=== PATIENT | female | born 1995 | race Caucasian/White ===

== ENCOUNTER 2016-04-11 00:01 | Emergency (ER) | payer OTHER ==
[2016-04-11] MEDS ORDERED: ONDANSETRON DISINTEGRATING 4 MG TAB PO ONE (00:27)
--- NOTE | 2016-04-11 00:28 | EDPHY ---
H & P Stated Complaint: vomiting, bloody Time Seen by Provider: 04/11/16 00:20 HPI/ROS: Chief complaint: Vomiting blood HPI: This is a 20-year-old college student who was out drinking this evening. Patient does not know how much she had to drink the state it was "all lot". She then developed some nausea and vomiting. Initially the emesis was yellowish. She vomited multiple times. Stated that the last couple of times she noticed that there was some blood in her emesis. She thinks she vomited blood maybe twice. Last was about 30 minutes ago. Has not had any pain. No abdominal pain. No chest pain. No shortness of breath. Is currently without complaint. ROS: 10 point Review of Systems is negative except as noted in the HPI. Past medical history: Acne vulgaris Medications: An acne medication she does not recall Allergies: Penicillin Social history: She does not smoke, she does drink alcohol, denies any other recreational drug use. Physical exam: Gen: Awake, Alert, No Distress, smiling, laughing, smells of alcohol HEENT: Nose: no rhinorrhea Eyes: PERRLA, EOMI Mouth: Moist mucosa Neck: Supple, no JVD Chest: nontender, lungs clear to auscultation Heart: S1, S2 normal, no murmur Abd: Soft, non-tender, no guarding Back: no CVA tenderness, no midline tenderness Ext: no edema, non-tender Skin: no rash Neuro: CN II-XII intact, Sensation grossly intact, Strength 5/5 in bilateral upper and lower extremities - Personal History LMP (Females 10-55): IUD In Place - Medical/Surgical History Hx Asthma: No Hx Chronic Respiratory Disease: No Hx Diabetes: No Hx Cardiac Disease: No Hx Renal Disease: No Hx Cirrhosis: No Hx Alcoholism: No Hx HIV/AIDS: No Hx Splenectomy or Spleen Trauma: No Other PMH: asthma - Social History Smoking Status: Never smoked Constitutional: Initial Vital Signs Temperature (C) 36.9 C 04/11/16 00:05 Heart Rate 89 04/11/16 00:05 Respiratory Rate 20 04/11/16 00:05 Blood Pressure 113/62 04/11/16 00:05 O2 Sat (%) 98 04/11/16 00:05 O2 Delivery Mode Room Air Allergies/Adverse Reactions: Penicillins Allergy (Verified 04/11/16 00:05) Medical Decision Making ED Course/Re-evaluation: 20-year-old girl who is been drinking heavily this evening with vomiting and likely Britney-Graham tear. Will observe for any further vomiting. Will give her oral ondansetron. She is hemodynamically normal. Has no pain. Has a normal exam and is without complaint. Departure - Departure Disposition: Home, Routine, Self-Care Clinical Impression: Alcohol intoxication, Britney-Graham tear Condition: Good Instructions: Alcohol Intoxication (ED), Britney-Graham Syndrome (ED) Additional Instructions: Please try to avoid binge drinking alcohol. Follow up at [facility] for any concerns. Referrals: NONE *PRIMARY CARE P,. [Primary Care Provider] - As per Instructions [facility] [Outside] - As per Instructions
[2016-04-11 01:40] VITALS: BP 111/75; PULSE 75; RESP 16; TEMP 97.9; O2SAT 95
== END 2016-04-11 01:40 | disposition home or self-care (01) ==
DX: K22.6 Gastro-esophageal laceration-hemorrhage syndrome (principal); F10.129 Alcohol abuse with intoxication, unspecified; J45.909 Unspecified asthma, uncomplicated

== ENCOUNTER 2016-09-16 21:35 | Emergency (ER) | payer OTHER ==
[2016-09-16] MEDS ORDERED: IBUPROFEN 600 MG TAB PO ONE (22:14)
[2016-09-16] MEDS ORDERED: ACETAMINOPHEN 500 MG TAB PO ONE (22:14)
[2016-09-16] MEDS ORDERED: NS 1,000 ML IV ONE ×2 (22:45→23:57)
--- NOTE | 2016-09-16 22:47 | EDPHY ---
H & P Stated Complaint: migraine headache 3 days Time Seen by Provider: 09/16/16 22:28 HPI/ROS: CHIEF COMPLAINT: Chills fever nausea fatigue HISTORY OF PRESENT ILLNESS: This is a 21-year-old female presenting to the emergency department complaining of several days of fever chills nausea fatigue. Patient states night chills started with eye swelling was not feeling that great, Thursday took some Advil was somewhat feeling better, feeling better on Thursday, Thursday chills started again and Thursday started feeling worse with fever. Seen at [facility] on 09/15/2016 diagnosed with sinus infection placed on doxycycline has had several doses no vomiting but nauseous. Patient states this afternoon evening symptoms worsen just feeling more fatigued body aches some facial swelling. Denies any chest pain shortness of breath REVIEW OF SYSTEMS: Constitutional: Fever chills decreased p.o. intake Eyes: No discharge. No blurred vision. Eye swelling ENT: No sore throat. Cardiovascular: No chest pain, no palpitations. Respiratory: No cough, no shortness of breath. Gastrointestinal: RUQ abdominal pain, nausea. no vomiting. No diarrhea Genitourinary: No hematuria. Musculoskeletal: No back pain. Body aches Skin: No rashes. Neurological: No headache. Source: Patient - Personal History LMP (Females 10-55): 15-21 Days Ago Current Tetanus/Diphtheria Vaccine: Yes Current Tetanus Diphtheria and Acellular Pertussis (TDAP): Yes - Medical/Surgical History Hx Asthma: Yes Hx Chronic Respiratory Disease: No Hx Diabetes: No Hx Cardiac Disease: No Hx Renal Disease: No Hx Cirrhosis: No Hx Alcoholism: No Hx HIV/AIDS: No Hx Splenectomy or Spleen Trauma: No Other PMH: asthma, migraines - Social History Smoking Status: Never smoked - Physical Exam Exam: General Appearance: Alert, no distress. Appears uncomfortable Eyes: Pupils equal and round no pallor or injection. ENT, Mouth: TMs non serous middle ear effusion bilaterally non erythemic. Mucous membranes dry. Respiratory: There are no retractions, lungs are clear to auscultation. Cardiovascular: No gallops no murmurs tachycardia @125 Gastrointestinal: Abdomen is soft, nondistended, right upper quadrant tenderness on palpation, no masses, bowel sounds normal. Neurological: No focal deficits. Answering questions appropriately Skin: Warm and dry, no rashes. Musculoskeletal: Neck is supple, anterior cervical lymphadenopathy nontender on palpate Extremities: symmetrical, full range of motion. Psychiatric: Patient is oriented X 3, acting appropriately Constitutional: Initial Vital Signs Temperature (C) 39.5 C H 09/16/16 21:47 Heart Rate 125 H 09/16/16 21:47 Respiratory Rate 18 09/16/16 21:47 Blood Pressure 120/82 H 09/16/16 21:47 O2 Sat (%) 98 09/16/16 21:47 O2 Delivery Mode Room Air Allergies/Adverse Reactions: acetaminophen [From Vicodin] Allergy (Verified 09/16/16 21:45) Cephalosporins Allergy (Verified 09/16/16 21:45) hydrocodone [From Vicodin] Allergy (Verified 09/16/16 21:45) Penicillins Allergy (Verified 04/11/16 00:05) Home Medications: Medication Instructions Recorded Doxycycline Hyclate 09/16/16 Xopenex 09/16/16 Medical Decision Making ED Course/Re-evaluation: Discussed ED plan of care: IV normal saline for dehydration, CBC, BMP, coags, lactic acid, ibuprofen Tylenol given 0030: Patient re-evaluation, stable, denies any nausea vomiting. Patient reports feeling somewhat better. 0045: Discharge home---> stable, discussed all discharge instructions with patient and mother Differential Diagnosis: Other differential diagnosis considered but not limited sepsis, otitis media - Data Points Laboratory Results: Laboratory Results 09/16/16 22:08 09/16/16 22:08 09/16/16 09/16/16 09/16/16 23:30 22:50 22:08 WBC RBC Hgb Hct MCV MCH MCHC RDW Plt Count MPV Neut % (Auto) Lymph % (Auto) Shelby % (Auto) Eos % (Auto) Baso % (Auto) Nucleat RBC Rel Count Absolute Neuts (auto) Absolute Lymphs (auto) Absolute Monos (auto) Absolute Eos (auto) Absolute Basos (auto) Absolute Nucleated RBC Immature Gran % Immature Gran # Platelet Estimate PT INR APTT VBG Lactic Acid 1.4 mmol/L mmol/L (0.7-2.1) Sodium Potassium Chloride Carbon Dioxide Anion Gap BUN Creatinine Estimated GFR Glucose Calcium Total Bilirubin Lipase Beta HCG, Qual NEGATIVE Urine Color YELLOW Urine Appearance HAZY Urine pH 6.0 (5.0-7.5) Ur Specific Roland 1.011 (1.002-1.030) Urine Protein NEGATIVE (NEGATIVE) Urine Ketones NEGATIVE (NEGATIVE) Urine Blood NEGATIVE (NEGATIVE) Urine Nitrate NEGATIVE (NEGATIVE) Urine Bilirubin NEGATIVE (NEGATIVE) Urine Urobilinogen NEGATIVE EU EU (0.2-1.0) Ur Leukocyte Esterase NEGATIVE (NEGATIVE) Urine Glucose NEGATIVE (NEGATIVE) 09/16/16 09/16/16 09/16/16 22:08 22:08 22:08 WBC 14.57 10^3/uL H 10^3/uL (3.80-9.50) RBC 5.00 10^6/uL 10^6/uL (4.18-5.33) Hgb 15.1 g/dL g/dL (12.6-16.3) Hct 43.8 % % (38.0-47.0) MCV 87.6 fL fL (81.5-99.8) MCH 30.2 pg pg (27.9-34.1) MCHC 34.5 g/dL g/dL (32.4-36.7) RDW 12.5 % % (11.5-15.2) Plt Count 120 10^3/uL L 10^3/uL (150-400) MPV 11.3 fL fL (8.7-11.7) Neut % (Auto) Not Reported Lymph % (Auto) Not Reported Shelby % (Auto) Not Reported Eos % (Auto) Not Reported Baso % (Auto) Not Reported Nucleat RBC Rel Count 0.0 % % (0.0-0.2) Absolute Neuts (auto) Not Reported Absolute Lymphs (auto) Not Reported Absolute Monos (auto) Not Reported Absolute Eos (auto) Not Reported Absolute Basos (auto) Not Reported Absolute Nucleated RBC 0.00 10^3/uL 10^3/uL (0-0.01) Immature Gran % Not Reported Immature Gran # Not Reported Platelet Estimate Pending PT 13.4 SEC SEC (12.0-15.0) INR 1.03 (0.83-1.16) APTT 28.2 SEC SEC (23.0-38.0) VBG Lactic Acid Sodium 136 mEq/L mEq/L (134-144) Potassium 4.2 mEq/L mEq/L (3.5-5.2) Chloride 103 mEq/L mEq/L (97-110) Carbon Dioxide 22 mEq/l mEq/l (22-31) Anion Gap 11 mEq/L mEq/L (8-16) BUN 9 mg/dL mg/dL (7-23) Creatinine 0.8 mg/dL mg/dL (0.6-1.0) Estimated GFR > 60 Glucose 102 mg/dL H mg/dL (70-100) Calcium 9.6 mg/dL mg/dL (8.5-10.4) Total Bilirubin 1.0 mg/dL mg/dL (0.1-1.4) Lipase 61.0 IU/L IU/L (23-300) Beta HCG, Qual Urine Color Urine Appearance Urine pH Ur Specific Roland Urine Protein Urine Ketones Urine Blood Urine Nitrate Urine Bilirubin Urine Urobilinogen Ur Leukocyte Esterase Urine Glucose Medications Given: Discontinued Medications Acetaminophen (Tylenol) 1,000 mg PO EDNOW ONE Stop: 09/16/16 22:15 Last Admin: 09/16/16 22:25 Dose: 1,000 mg Sodium Chloride (Ns) 1,000 mls @ 0 mls/hr IV ONCE ONE PRN Reason: Wide Open Stop: 09/16/16 22:46 Last Admin: 09/16/16 22:52 Dose: 1,000 mls Sodium Chloride (Ns) 1,000 mls @ 0 mls/hr IV ONCE ONE PRN Reason: Wide Open Stop: 09/16/16 23:58 Last Admin: 09/17/16 00:01 Dose: 1,000 mls Ibuprofen (Motrin) 600 mg PO EDNOW ONE Stop: 09/16/16 22:15 Last Admin: 09/16/16 22:25 Dose: 600 mg Departure - Departure Disposition: Home, Routine, Self-Care Clinical Impression: Fever Qualifiers: Fever type: unspecified Qualified Code(s): R50.9 - Fever, unspecified Condition: Good Instructions: Acetaminophen (By mouth), Dehydration (ED) Additional Instructions: 1. Rest, increase fluid intake 2. Continue taking antibiotics as prescribed by previous provider. Follow up with primary care provider this week 3. If any symptoms worsen, such as: Under resolving fever 101.1 greater than 3 days, chest pain, nausea vomiting, shortness of breath return to the emergency department 4. Ibuprofen 600-800 mg every 6-8 hours, Tylenol 500-1000mg every 6 hours Referrals: QUIN[facility] CO[facility] [Other] - As per Instructions Stand Alone Forms: School Excuse, Work Excuse
[2016-09-16 23:06] LABS: ANION GAP 11 mEq/L (8-16); CALCIUM 9.6 mg/dL (8.5-10.4); CARBON DIOXIDE 22 mEq/l (22-31); CHLORIDE 103 mEq/L (97-110); CREATININE 0.8 mg/dL (0.6-1.0); GLOMERULAR FILTRATION RATE > 60; GLUCOSE 102 mg/dL (70-100); INR 1.03 (0.83-1.16); POTASSIUM 4.2 mEq/L (3.5-5.2); PROTIME(PATIENT) 13.4 SEC (12.0-15.0); SODIUM 136 mEq/L (134-144)
[2016-09-16 23:07] LABS: APTT 28.2 SEC (23.0-38.0)
[2016-09-16 23:20] LABS: ADD MORPH? NO; FRAGMENT RBC FLAG 0 (0-99); HEMATOCRIT 43.8 % (38.0-47.0); HEMOGLOBIN 15.1 g/dL (12.6-16.3); LEFT SHIFT FLG 0 (0-99); LIPEMIA HEMOLYSIS FLAG 90 (0-99); MEAN CELL HEMOGLOBIN 30.2 pg (27.9-34.1); MEAN CELL HEMOGLOBIN CONCENTR. 34.5 g/dL (32.4-36.7); MEAN CELL VOLUME 87.6 fL (81.5-99.8); MEAN PLATELET VOLUME 11.3 fL (8.7-11.7); PLATELET CLUMPS FLAG 10 (0-99); PLATELET COUNT 120 10^3/uL (150-400); RED CELL DISTRIBUTION WIDTH 12.5 % (11.5-15.2)
[2016-09-16 23:28] VITALS: O2SAT 97
[2016-09-16 23:33] LABS: ATYPICAL LYMPHOCYTE FLAG 300 (0-99)
[2016-09-16 23:34] LABS: ADD DIFF? YES; ADD SCAN? NO
[2016-09-17 00:21] LABS: COLOR YELLOW; LEUKOCYTE ESTERASE,URINE NEGATIVE (NEGATIVE); NITRITE,URINE NEGATIVE (NEGATIVE)
[2016-09-17 00:29] VITALS: BP 106/63
[2016-09-17 01:13] VITALS: PULSE 86; RESP 18; TEMP 99
[2016-09-17 01:34] LABS: PLATELET ESTIMATE DECREASED (ADEQ)
== END 2016-09-17 01:13 | disposition home or self-care (01) ==
DX: R50.9 Fever, unspecified (principal); J45.909 Unspecified asthma, uncomplicated; E86.0 Dehydration

== ENCOUNTER 2017-07-21 18:50 | Emergency (ER) | payer OTHER ==
[2017-07-21 18:56] VITALS: BP 128/78
[2017-07-21] MEDS ORDERED: CLINDAMYCIN 150 MG CAP PO ONE (19:10)
--- NOTE | 2017-07-21 19:14 | EDPHY ---
H & P Stated Complaint: R swollen hand with red line, getting bigger Time Seen by Provider: 07/21/17 19:00 HPI/ROS: CHIEF COMPLAINT: Hand infection HISTORY OF PRESENT ILLNESS: Patient is a 22-year-old healthy female who comes to the emergency department complaining of an infection in her right hand. She 1st noticed some swelling and mild erythema to the dorsum of her right hand yesterday evening. Today it is got worse and is slightly warm to the touch. She denies any trauma, laceration, abrasion, but bite etc. She denies drug use. No other sites of injury or complaint. No fevers. REVIEW OF SYSTEMS: Constitutional: denies: chills, fever, recent illness, recent injury EENTM: denies: blurred vision, double vision, nose congestion Respiratory: denies: cough, shortness of breath Cardiac: denies: chest pain, irregular heart rate, lightheadedness, palpitations Gastrointestinal/Abdominal: denies: abdominal pain, diarrhea, nausea, vomiting, blood streaked stools Genitourinary: denies: dysuria, frequency, hematuria, pain Musculoskeletal: denies: joint pain, muscle pain Skin: See HPI Neurological: denies: headache, numbness, paresthesia, tingling, dizziness, weakness Hematologic/Lymphatic: denies: blood clots, easy bleeding, easy bruising Immunologic/allergic: denies: HIV/AIDS, transplant EXAM: GENERAL: Well-appearing, well-nourished and in no acute distress. HEAD: Atraumatic, normocephalic. EYES: Pupils equal round and reactive to light, extraocular movements intact, sclera anicteric, conjunctiva are normal. ENT: TMs normal, nares patent, oropharynx clear without exudates. Moist mucous membranes. NECK: Normal range of motion, supple without lymphadenopathy or JVD. LUNGS: Breath sounds clear to auscultation bilaterally and equal. No wheezes rales or rhonchi. HEART: Regular rate and rhythm without murmurs, rubs or gallops. ABDOMEN: Soft, nontender, normoactive bowel sounds. No guarding, no rebound. No masses appreciated. BACK: No CVA tenderness, no spinal tenderness, step-offs or deformities EXTREMITIES: See below Normal, range of motion, No clubbing or cyanosis. NEUROLOGICAL: Cranial nerves II through XII grossly intact. Normal speech, normal gait. 5/5 strength, normal movement in all extremities, normal sensation PSYCH: Normal mood, normal affect. SKIN: Patient has very mild light erythema to the dorsum of her right hand. There is a a single lymphatic streak rising up to the mid forearm. No purulence. No obvious wound. No pain with movement of her joints or bones. Source: Patient Exam Limitations: No limitations - Personal History LMP (Females 10-55): 8-14 Days Ago Current Tetanus Diphtheria and Acellular Pertussis (TDAP): Yes - Medical/Surgical History Hx Asthma: Yes Hx Chronic Respiratory Disease: No Hx Diabetes: No Hx Cardiac Disease: No Hx Renal Disease: No Hx Cirrhosis: No Hx Alcoholism: No Hx HIV/AIDS: No Hx Splenectomy or Spleen Trauma: No Other PMH: asthma, migraines, artis barre 2016 - Family History Significant Family History: No pertinent family hx - Social History Smoking Status: Never smoked Alcohol Use: Sober Drug Use: None Constitutional: Initial Vital Signs Temperature (C) 36.7 C 07/21/17 18:54 Heart Rate 78 07/21/17 18:54 Respiratory Rate 20 07/21/17 18:54 Blood Pressure 128/78 H 07/21/17 18:54 O2 Sat (%) 97 07/21/17 18:54 O2 Delivery Mode Room Air Allergies/Adverse Reactions: acetaminophen [From Vicodin] Allergy (Verified 09/16/16 21:45) Cephalosporins Allergy (Verified 09/16/16 21:45) hydrocodone [From Vicodin] Allergy (Verified 09/16/16 21:45) Penicillins Allergy (Verified 04/11/16 00:05) Sulfa (Sulfonamide Antibiotics) Allergy (Verified 07/21/17 18:54) Home Medications: Medication Instructions Recorded Doxycycline Hyclate 09/16/16 Xopenex 09/16/16 Clindamycin HCl [Clindamycin] 300 mg PO QID #40 cap 07/21/17 Medical Decision Making ED Course/Re-evaluation: Patient has erysipelas clinically. She has multiple drug allergies including cephalosporins. I will start her on clindamycin. I will have her follow up within the next 48 hr with her primary. She was given the 1st dose here. She understands and agrees with this plan. We discussed symptoms to watch for including abscess for image or signs of involvement of bones or joints. Differential Diagnosis: Partial list of the Differential diagnosis considered include but were not limited to; erysipelas, cellulitis, wound infection and although unlikely based on the history and physical exam, I also considered abscess, osteomyelitis, septic joint, allergic reaction. I discussed these differential diagnoses and the plan with the patient as well as the usual and expected course. The patient understands that the diagnosis is provisional and that in medicine we are not always correct and that further workup is often warranted. Usual and customary warnings were given. All of the patient's questions were answered. The patient was instructed to return to the emergency department should the symptoms at all worsen or return, otherwise to followup with the physician as we discussed. - Data Points Medications Given: Discontinued Medications Clindamycin (Clindamycin) 300 mg PO EDNOW ONE PRN Reason: Protocol Stop: 07/21/17 19:11 Last Admin: 07/21/17 19:14 Dose: 300 mg Departure - Departure Disposition: Home, Routine, Self-Care Clinical Impression: Erysipelas Condition: Fair Instructions: Cellulitis (ED) Referrals: NONE *PRIMARY CARE P,. [Primary Care Provider] - As per Instructions Toyin Grace DO [Doctor of Osteopathy] - 1-2 days without fail ED,PHYSICIAN ONAMRITTY [Medical Doctor] - 1 day, if not improved Prescriptions: Clindamycin HCl [Clindamycin] 300 mg PO QID #40 cap
== END 2017-07-21 19:39 | disposition home or self-care (01) ==
DX: A46 Erysipelas (principal); J45.909 Unspecified asthma, uncomplicated